=== PATIENT | female | born 1985 | race African-American/Black ===

== ENCOUNTER 2024-01-30 13:15 | Outpatient (AMB) | payer OTHER, MEDICAID, SELFPAY ==
--- NOTE | 2024-01-30 13:13 | MHC.PC.OV ---
Vital Signs 01/30/24 13:21 Height 5 ft 2 in Weight 162 lb BMI 29.6 BP 120/70 Blood Pressure Location Rt brachial Position Sitting Pulse 72 Pulse Source Pulse Oximeter Pulse Oximetry (%) 98 Oxygen Delivery Method Room Air Intake Visit Reasons: Est Care Low Thyroid Intake Note: pt is here for new patient, est care. 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 Required: No Accompanied by: Self / Same As Patient Allergies No Known Allergies Allergy (Verified 01/30/24 13:30) Medication List - Last Reconciled 01/30/24 by MALIK Lee chlorhexidine gluconate 0.12% PO loratadine 10 mg PO DAILY Tobacco use date assessed: 01/30/24 Dental Screening Dental Screen Date: 01/30/24 Did you have a dental visit in the last 12 months?: Yes Did you have a dental problem in the last 6 months where you did not have access to dental care?: No Was dental information given to patient?: Patient has dentist HPI HPI Comments History of Present Illness Details Patient is a 38-year-old female who I am meeting for the 1st time Patient has a past medical history significant for hypothyroidism for which she is not taking medication. Will draw labs. She has establish care with [facility]. Will sign release in send us records. Patient has history of gestational diabetes, will draw A1c. The patient denies polyuria polydipsia. Patient does have chief complaint of insomnia due to anxiety. Patient has establish care with therapist. Patient denies SI/HI. She believes she has increased anxiety due to social circumstances. COUNT [facility]CLUDES [facility] Medical History (Updated 02/01/24 @ 16:45 by Ludy Worthington MD) Hx of gestational diabetes mellitus, not currently History of hypothyroidism Hypothyroid Surgical History Hx of section Family History Mother High blood pressure Acid reflux Father No problems noted. 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 1. Little interest or pleasure in doing things: more than half the days 2. Feeling down, depressed, or hopeless: several days 3. Trouble falling or staying asleep, or sleeping too much: more than half the days 4. Feeling tired or having little energy: not at all 5. Poor appetite or overeating: nearly every day 6. Feeling bad about yourself - or that you are a failure or have let yourself or your family down: not at all 7. Trouble concentrating on things, such as reading the newspaper or watching television: not at all 8. Moving or speaking so slowly that other people could have noticed. Or the opposite - being so fidgety or restless that you have been moving around a lot more than usual: not at all 9. Thoughts that you would be better off or of hurting yourself in some way: not at all Total score: 8 Depression Screening Interpretation: Negative Depression Screening Done: Yes 79291 - PHQ-9 Billing: Yes Source: Developed by Drs. Roger Srinivasan, Tanesha Burton, Armen Rowell and colleagues, with an educational sarina from [employer] Thrive Questionnaire Date Thrive assessed: 01/30/24 I am a: Patient What is your living situation today?: I have a steady place to live Within the past 12 months, did the food you bought not last and you didn't have the money to get more?: Never true Within the past 12 months, did you worry whether your food would run out before you got money to buy more?: Never true Do you have trouble paying for medicines?: No Do you have trouble getting transportation to medical appointments?: No Do you have trouble paying your heating and electricity bill?: No Do you have trouble taking care of your child, family member or friend?: No Do you have trouble with day-to-day activities such as bathing, preparing meals, shopping, managing finances, etc.?: No Are you currently unemployed and looking for a job?: No Are you interested in more education?: No Please select the resources that you would like help with: None Currently or been in a relationship where the following occur: no concerns reported THRIVE Score: 0 AUDIT C Alcohol Use Questionnaire (AUDIT-C) 1. How often do you have a drink containing alcohol?: Monthly or less 2. How many drinks containing alcohol do you have on a typical day when you are drinking?: 1 or 2 3. How often do you have six or more drinks on one occasion?: Never Total Score: 1 Score Reviewed/Action Taken: Yes SATHYA-7 AMB Questionnaire SATHYA-7 Date SATHYA - 7 assessed: 01/30/24 Feeling nervous, anxious, or on edge: 1 = Several days Not being able to stop or control worryin = Not at all Worrying too much about different things: 1 = Several days Trouble relaxin = Not at all Being so restless that it is hard to sit still: 0 = Not at all Becoming easily annoyed or irritable: 1 = Several days Feeling afraid as if something awful might happen: 1 = Several days Total SATHYA-7 score (0-4 normal; 5-9 mild; 10-14 moderate; 15-21 severe): 4 Source: Developed by Drs. Roger Srinivasan, Tanesha Burton, Armen Rowell and colleagues, with an educational sarina from [employer] SATHYA-7 Assessment Billing SATHYA-7 Assessment Tool: SATHYA-7 Assessment 44428 Review of Systems Const All systems reviewed & are unremarkable except as noted in HPI and below Denies fatigue, Denies fever(s) and Denies headache(s) ENT Denies headache(s) Card Denies chest pain and Denies dyspnea Resp Denies dyspnea Neuro Denies headache(s) Psych Reports anxiety (With insomnia. Due to going through divorce. Patient has therapist), Denies homicidal ideation and Denies suicidal ideation Endo Denies fatigue Aller/Immun Reports seasonal rhinorrhea Physical exam (Primary Care) Vital Signs: Last Vital Signs Pulse 72 01/30/24 13:21 BP 120/70 01/30/24 13:21 Pulse Ox 98 01/30/24 13:21 Oxygen Delivery Method Room Air 01/30/24 13:21 Care Plan Goal for BP management: Blood pressure in control. BMI result Body Mass Index 29.6 Tobacco/Smoking Status: Tobacco use Status Tobacco use date assessed 01/30/24 01/30/24 13:15 Patient Tobacco Use Status Never used Tobacco 01/30/24 13:34 e-Cigarette/Vaping Use Never Used 01/30/24 13:34 PHQ-9: PHQ-9 Score PHQ-9: Total score 8 01/30/24 13:56 Depression Screening Interpretation: Negative Thrive Assessment: Date of Thrive Assessment Date Thrive assessed 01/30/24 01/30/24 13:28 Currently or been in a relationship where the following occur: no concerns reported Const Other: Appearance: Alert.? Oriented X3.? No acute distress.? Head: Normocephalic, atraumatic. Neck: Normal inspection.? Neck supple.?No thyroid nodule. CVS: Normal heart rate and rhythm.? Pulses normal.? Respiratory: No respiratory distress.? Breath sounds normal.? Neuro: Oriented X 3.? No motor deficit.? No sensory deficit. Assessment and Plan Assessment & Plan (1) Seasonal allergies: Code(s): J30.2 - Other seasonal allergic rhinitis Plan: Patient currently taking loratadine 10 mg (2) Insomnia due to anxiety and fear: Comment: Patient currently sees therapist. Will also prescribe hydroxyzine 25 mg p.o. p.r.n. to be taken at bedtime. Patient has been educated on side effects of this medication. Code(s): F51.05 - Insomnia due to other mental disorder; F40.9 - Phobic anxiety disorder, unspecified Plan: Take your medications as prescribed. If you were prescribed antibiotics today, it is important that you take your medication to their entirety, do not skip any doses, do not finish them early. Return to the emergency department with new or worsening symptoms. Such as fevers, chills, chest pain, shortness of breath, nausea, vomiting, dizziness, headache, vision changes, lethargy In case of emergency call 911 (3) History of hypothyroidism: Code(s): Z86.39 - Personal history of other endocrine, nutritional and metabolic disease Plan: TSH and reflex free T4 ordered (4) Hx of gestational diabetes mellitus, not currently : Code(s): Z86.32 - Personal history of gestational diabetes Plan: Hemoglobin A1c and comprehensive metabolic 40 Plan Follow up in 3 months. Orders: Orders Vitamin D 25-OH (D2 and D3) 01/30/24 Z13.21 - Encounter for screening for nutritional disorder UA CC w/rflx Micro + Cult 01/30/24 Z13.89 - Encounter for screening for other disorder Comprehensive Met. Panel 01/30/24 Z91.89 - Other specified personal risk factors, not elsewhere classified Vitamin B6 01/30/24 Z13.21 - Encounter for screening for nutritional disorder Vitamin B12 01/30/24 Z13.21 - Encounter for screening for nutritional disorder TSH reflex Free T4 01/30/24 Z13.29 - Encounter for screening for other suspected endocrine disorder Lipid Panel 01/30/24 Z13.220 - Encounter for screening for lipoid disorders Complete Blood Count Auto Diff 01/30/24 Z13.0 - Encounter for screening for diseases of the blood and blood-forming organs and certain disorders involving the immune mechanism Hemoglobin A1c 01/30/24 Z13.1 - Encounter for screening for diabetes mellitus Medications: New hydroxyzine HCl 25 mg PO BEDTIME PRN 30 tabs 0RF anxiety Coding Level of Care Code New Pt Level 4 (29951) Diagnoses Seasonal allergies J30.2 Insomnia due to anxiety and fear F51.05; F40.9 History of hypothyroidism Z86.39 Hx of gestational diabetes mellitus, not currently Z86.32 Additional Codes SATHYA-7 Assessment Billing - SATHYA-7 Assessment Tool: SATHYA-7 Assessment 16543 ([id number]) Time Spent (min) 27
[2024-01-30 13:21] VITALS: BP 120/70; PULSE 72; O2SAT 98; BMI 29.6
== END 2024-01-30 14:38 | disposition home or self-care (01) ==
PROVIDERS: Visit Provider Nurse Practitioner Primary Care
DX: J30.2 Other seasonal allergic rhinitis (principal); F51.05 Insomnia due to other mental disorder; F40.9 Phobic anxiety disorder, unspecified; Z86.39 Personal history of other endocrine, nutritional and metabolic disease; Z86.32 Personal history of gestational diabetes
CPT/HCPCS: 99204

== ENCOUNTER 2024-01-30 13:56 | Outpatient (REF) | payer OTHER, SELFPAY ==
[2024-01-30 16:13] LABS: MANUAL DIFF FLAG NO
[2024-01-30 16:16] LABS: Appearance Urine Clear; Color Urine Yellow; Glucose Urine UA Negative (Negative); Leukocyte Esterase Urine Negative (Negative); Nitrite Urine Negative (Negative); PH 7.5 (5.0-9.0); Specific Gravity - Urine 1.015 (1.005-1.025); Urine Blood Negative (Negative); Urine Ketones Negative (Negative); Urine Protein Negative (Neg-Trace)
[2024-01-30 16:20] LABS: Basophils Percent Auto 0.2 % (0-2); Eosinophils Absolute Auto 0.2 X10*3/uL (0.0-0.4); Eosinophils Percent Auto 3.8 % (0-4); Hematocrit 37.9 % (37.0-47.0); Hemoglobin 12.7 g/dl (12.0-16.0); Lymphocytes Absolute Auto 2.2 X10*3/uL (1.2-4.9); Lymphocytes Percent Auto 50.5 % (20-40); Mean Corpuscular HGB Conc 33.5 g/dl (31.0-35.0); Mean Corpuscular Hemoglobin 28.1 pg (27.0-33.0); Mean Corpuscular Volume 83.8 fL (80.0-98.0); Mean Platelet Volume 11.3 fL (9.4-12.3); Monocytes Absolute Auto 0.4 X10*3/uL (0.1-1.2); Monocytes Percent Auto 9.9 % (2-11); Neutrophils Absolute Auto 1.5 x10*3/uL (2.0-8.3); Neutrophils Percent Auto 35.6 % (45-73); Platelet Count 340 X10*3/uL (160-400); Red Blood Count 4.52 X10*6/uL (4.20-5.50); Red Cell Distribution Width 13.5 % (11.0-16.0); White Blood Count 4.3 X10*3/uL (4.8-10.8)
[2024-01-30 17:09] LABS: Estimated Average Glucose 108 mg/dL; Hemoglobin A1c % 5.4 % (<6.0)
[2024-01-30 18:59] LABS: Alanine Aminotransferase 10 U/L (0-31); Albumin Level 4.3 g/dL (3.5-5.0); Alkaline Phosphatase 51 U/L (39-117); Anion Gap 13 (12-20); Aspartate Amino Transferase 16 U/L (5-31); Bilirubin Total 0.7 mg/dL (0.0-1.0); Blood Urea Nitrogen 8 mg/dL (9-16); Calcium 9.5 mg/dL (8.4-10.2); Carbon Dioxide 25 mmol/L (22-29); Chloride 104 mmol/L (96-108); Cholesterol 111 mg/dL (<200); Estimated Glomerular Filt Rate > 60; Glucose Random 92 mg/dL (60-115); HDL Cholesterol 44 mg/dL (>40); LDL Cholesterol Calculated 57 mg/dL (<100); Potassium 4.3 mmol/L (3.3-5.1); Sodium 138 mmol/L (135-145); Total Protein 8.2 g/dL (6.5-8.0); Triglycerides 52 mg/dL (<150)
[2024-01-30 19:14] LABS: Vitamin B12 422 pg/mL (200-900)
[2024-01-30 19:17] LABS: TSH reflex Free T4 3.38 uIU/mL (0.32-4.0)
[2024-02-04 12:23] LABS: Vitamin D 25-OH, D2 <4 ng/mL; Vitamin D 25-OH, D3 10 ng/mL; Vitamin D 25-OH, Total 10 ng/mL (30-100)
== END 2024-01-30 13:57 | disposition home or self-care (01) ==
LOC: HO.HMGCLDS 13:56
PROVIDERS: PCP Internal Medicine; Visit Provider Nurse Practitioner Primary Care
DX: Z13.29 Encounter for screening for other suspected endocrine disorder (principal); Z13.0 Encounter for screening for diseases of the blood and blood-forming organs and certain disorders involving the immune mechanism; Z91.89 Other specified personal risk factors, not elsewhere classified; Z13.1 Encounter for screening for diabetes mellitus; Z13.220 Encounter for screening for lipoid disorders; Z13.89 Encounter for screening for other disorder; Z13.21 Encounter for screening for nutritional disorder
CPT/HCPCS: 36415; 80053; 80061; 81003; 82306; 82607; 83036; 84207; 84443; 85025

== ENCOUNTER 2024-07-21 13:21 | Outpatient (AMB) | payer OTHER, MEDICAID, SELFPAY ==
--- NOTE | 2024-07-21 13:34 | AM.OFFWIN_ITS ---
Intake Vital Signs 07/21/24 13:35 Height 5 ft 2 in Weight 175 lb BMI 32.0 BP 108/70 Blood Pressure Location Lt brachial Position Sitting Pulse 72 Pulse Source Pulse Oximeter Pulse Oximetry (%) 98 Oxygen Delivery Method Room Air Intake Visit Reasons: EP Sharp pain in rt breast Intake Note: Patient here for sharp pain of right breast which started yesterday, pt states it comes and goes. Patient Tobacco Use Status: Never used Tobacco Allergies No Known Allergies Allergy (Verified 07/21/24 13:36) Do you need a note to return to daycare/school/sports/work: Yes HPI EP Sharp pain in rt breast HPI Details This note is constructed using voice recognition software. While every effort has been made to ensure accuracy, rn occupational errors may have been included. The patient is a 38 year old female who presents to the clinic today with sharp right breast pain since yesterday intermittently. She reports that she has a Mirena IUD, and get irregular periods. She has no personal or family history of breast cancer. She denies nipple inversion or nipple discharge. She has not done a breast exam as she does not know how to perform 1. [facility] Medical History (Updated 02/01/24 @ 16:45 by Ludy Worthington MD) Hx of gestational diabetes mellitus, not currently History of hypothyroidism Hypothyroid Surgical History Hx of section Family History Mother High blood pressure Acid reflux Father No problems noted. 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 [employer] Current occupational exposures/hazards: No Cognitive needs: No Hearing needs: No Vision needs: No Review of Systems Const All systems reviewed & are unremarkable except as noted in HPI and below Physical Exam Vital Signs: Last Vital Signs Pulse 72 07/21/24 13:35 BP 108/70 07/21/24 13:35 Pulse Ox 98 07/21/24 13:35 Oxygen Delivery Method Room Air 07/21/24 13:35 BMI result Body Mass Index 32.0 Const General: cooperative, healthy appearing, comfortable, no acute distress and well developed Orientation/consciousness: patient oriented x3 Limitations: no limitations Chest Chest palpation & inspection: normal inspection of the chest and normal palpation of entire chest wall (Fibrous tissue palpated in each breast) Breast/axilla inspection: normal inspection of the breasts Breast/axilla palpation: no axillary lymphadenopathy Resp Effort & Inspection: normal respiratory effort and able to speak in complete sentences Skin General skin exam: no rashes or lesions noted Neuro General: patient oriented x3 Assessment & Plan Assessment & Plan (1) Mastodynia of right breast: Code(s): N64.4 - Mastodynia Plan: Reassuring physical examination. Educated patient on performance of self-breast examination. Reviewed benign variance of fibrous tissue. Imaging not indicated at this time. Advised patient to follow up with ongoing or worsening symptoms. Plan See above for full details and plan. Coding Level of Care Code Est Pt Level 3 (82745) Diagnoses Mastodynia of right breast N64.4
[2024-07-21 13:35] VITALS: BP 108/70; PULSE 72; O2SAT 98; BMI 32.0
== END 2024-07-21 14:40 | disposition home or self-care (01) ==
PROVIDERS: Visit Provider Registered Nurse
DX: N64.4 Mastodynia (principal)

== ENCOUNTER → 2024-07-21 13:21 | Outpatient (BNVA) | payer OTHER, MEDICAID, SELFPAY | PROVIDERS: Visit Provider Registered Nurse ==

== ENCOUNTER 2024-08-11 10:22 | Outpatient (AMB) | payer OTHER, MEDICAID, SELFPAY ==
--- NOTE | 2024-08-11 10:28 | MHC.PC.OV ---
Vital Signs 08/11/24 10:30 Height 5 ft 2 in Weight 178 lb BMI 32.6 BP 108/80 Blood Pressure Location Lt brachial Position Sitting Pulse 77 Pulse Source Pulse Oximeter Pulse Oximetry (%) 98 Oxygen Delivery Method Room Air Intake Visit Reasons: Transfer from [facility] thyroid/labs Intake Note: Pt is here today transfer from [facility] Allergies No Known Allergies Allergy (Verified 08/11/24 10:48) Medication List - Last Reconciled 08/11/24 by Ludy Worthington MD cholecalciferol (vitamin D3) 50 mcg PO DAILY hydroxyzine HCl 25 mg PO BEDTIME PRN loratadine 10 mg PO DAILY Tobacco use date assessed: 08/11/24 Dental Screening Dental Screen Date: 08/11/24 Did you have a dental visit in the last 12 months?: Yes Did you have a dental problem in the last 6 months where you did not have access to dental care?: No Was dental information given to patient?: Patient has dentist HPI Transfer from [facility] thyroid/labs HPI Details 38 year old lady with past medical history significant for hypothyroidism currently not on any medication, history of gestational diabetes, here to establish care with new PCP.. She has been feeling well, with no complaints at present time. Reviewed last fasting labs from 01/2024 , which showed normal thyroid, lipid levels and glucose levels . [facility] Medical History (Updated 08/11/24 @ 10:58 by Ludy Worthington MD) Vitamin D deficiency Hx of gestational diabetes mellitus, not currently Hypothyroid Surgical History Hx of section Family History Mother High blood pressure Acid reflux Father No problems noted. 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 [employer] Current occupational exposures/hazards: No Cognitive needs: No Hearing needs: No Vision needs: Yes Questionnaire Thrive Questionnaire Date Thrive assessed: 05/03/24 I am a: Patient What is your living situation today?: I have a place to live, but I am worried about losing it in the future Within the past 12 months, did the food you bought not last and you didn't have the money to get more?: Never true Within the past 12 months, did you worry whether your food would run out before you got money to buy more?: Never true Do you have trouble paying for medicines?: No Do you have trouble getting transportation to medical appointments?: No Do you have trouble paying your heating and electricity bill?: No Do you have trouble taking care of your child, family member or friend?: No Do you have trouble with day-to-day activities such as bathing, preparing meals, shopping, managing finances, etc.?: No Are you currently unemployed and looking for a job?: No Are you interested in more education?: No Please select the resources that you would like help with: None THRIVE Score: 1 SATHYA-7 AMB Questionnaire SATHYA-7 Date SATHYA - 7 assessed: 01/30/24 Source: Developed by Drs. Roger Srinivasan, Tanesha Burton, Armen Rowell and colleagues, with an educational sarina from [facility]. Review of Systems Const Denies fatigue, Denies fever(s) and Denies headache(s) Eyes Reports no additional complaints ENT Denies headache(s) Card Denies chest pain and Denies dyspnea Resp Denies dyspnea GI Reports no additional complaints Reports no additional complaints Musc Reports no additional complaints Skin/Breast Denies breast pain, Denies breast mass and Denies rash Neuro Denies headache(s) Psych Reports no additional complaints Endo Denies fatigue Prasanth/Lymph Reports no additional complaints Aller/Immun Reports seasonal rhinorrhea Physical exam (Primary Care) Vital Signs: Last Vital Signs Pulse 77 08/11/24 10:30 BP 108/80 08/11/24 10:30 Pulse Ox 98 08/11/24 10:30 Oxygen Delivery Method Room Air 08/11/24 10:30 BMI result Body Mass Index 32.6 Tobacco/Smoking Status: Tobacco use Status Tobacco use date assessed 08/11/24 08/11/24 10:31 Patient Tobacco Use Status Never used Tobacco 08/11/24 10:31 e-Cigarette/Vaping Use Never Used 08/11/24 10:31 PHQ-9: PHQ-9 Score PHQ-9: Total score 6 08/11/24 11:17 Thrive Assessment: Date of Thrive Assessment Date Thrive assessed 05/03/24 08/11/24 10:31 Const General: no acute distress and alert Orientation/consciousness: patient oriented x3 HENMT Ears: external ears normal, TM's normal bilaterally and EAC's normal General nose exam: Normal external nose present Mouth: Normal oral and palatal mucosa present, oropharynx normal and moist mucous membranes Eyes General: appearance normal, both eyes and all related structures Neck Neck: Yes full ROM, Yes no lymphadenopathy and Yes supple Resp Effort & Inspection: normal respiratory effort and able to speak in complete sentences Auscultation: clear to auscultation bilaterally Cardio Rate: regular rate Rhythm: regular rhythm Heart sounds: S1 normal heart sound present and S2 normal heart sound present GI Palpation (GI): Soft to palpation, nontender and no masses Auscultation: normal bowel sounds Skin General skin exam: no rashes or lesions noted Neuro General: patient oriented x3, gait normal, tone normal, moves all extremities, Normal light touch and pain sensation and no focal motor deficits Cranial nerves: Yes CN's II-XII intact bilaterally Cognition (Neuro): normal cognition Extrem General: Yes full ROM, Yes no joint enlargement, Yes no clubbing, cyanosis or edema and Yes no calf tenderness Psych Appearance: grossly normal and well kempt Mental Status: mental status grossly normal Speech and movement: Normal speech and movement present Affect: normal affect Attitude: cooperative Thought process: Normal thought process present Thought content: Normal thought content present and suicidality Office Procedures Flu Questionnaire Does the patient have a severe egg allergy?: No Does the patient have severe life threatening allergies?: No Does the patient have a fever or illness today?: No Has the patient ever had Guillain-Theresa Syndrome?: No Has the patient ever had any past reaction to a flu shot?: No Immunizations Fluarix Triv [id number] (PF) 45 mcg (15 mcg x 3)/0.5 mL IM syringe Performing Provider: Ludy Worthington MD Performing Location: [facility] Administered by: Darcy Leon CMA on 08/11/24 11:18 Dose Route Admin Location Dispensed Lot Number Expiration Date [employer] 0.5 mL IM Left Deltoid 0.5 mL [id number] 03/28/25 [id number] [employer] VIS Given Date VIS Provided VIS Publication Date 08/11/24 Single Vaccine 21 Eligibility Eligibility Date Funding Source Not VFC Eligible 08/11/24 Private Results Reviewed Results Reviewed: Name: Donna Gordon Age/Sex: 38/F : 1985 Unit#: [id number] Attend Dr: Blake Harkins TELETYPE INSTALLER Re01/30/24 Status: DEP [facility] SPEC : [id number] LEO: 01/30/24 STATUS: COMP REQ : [id number] RECD: 01/30/24-[address]: Blake Harkins TELETYPE INSTALLER COMP: 01/30/24 ENTERED: 01/30/[address]: Ludy Worthington MD ORDERED: CMP, Lipid Panel, TSH Rflx Test Result Flag Reference Sodium 138 135-145 mmol/L Potassium 4.3 3.3-5.1 mmol/L CL 104 96-108 mmol/L CO2 25 22-29 mmol/L Gap 13 12-20 BUN 8 L 9-16 mg/dL Creat 0.82 0.5-1.4 mg/dL EGFR > 60 NOTE: For -[place] individuals, multiply the result by 1.210. Chronic Kidney Disease: Estimated GFR < 60 mL/min/1.73m2 Severe Kidney Disease: Estimated GFR < 15 mL/min/1.73m2 Glucose, Random 92 60-115 mg/dL CA 9.5 8.4-10.2 mg/dL Total Bili 0.7 0.0-1.0 mg/dL AST (GOT) 16 5-31 U/L ALT (GPT) 10 0-31 U/L Protein, Total 8.2 H 6.5-8.0 g/dL Alb 4.3 3.5-5.0 g/dL Triglyceride 52 <150 mg/dL Desirable Triglyceride: less than 150 mg/dL Borderline High Triglyceride 150-199 mg/dL High Triglyceride: 200-499 mg/dL Very High Triglyceride: greater than or equal to 5OO mg/dL Cholesterol 111 <200 mg/dL Desirable Cholesterol: less than 200 mg/dL Borderline High Cholesterol: 200-239 mg/dL High Cholesterol: greater than 239 mg/dL LDL Calculated 57 <100 mg/dL Desirable LDL: less than 100 mg/dL Near Optimal/Above Optimal LDL: 110-129 mg/dL Borderline High LDL: 130-159 mg/dL High LDL: 160-189 mg/dL Very High LDL: greater than or equal to 190 mg/dL HDL 44 >40 mg/dL Desirable HDL: greater than 40 mg/dL Note: This HDL assay may give artificially low results in patients with liver disease. Alk Phos 51 39-117 U/L TSH 3.38 0.32-4.0 uIU/mL Laboratory Tests 01/30/24 14:18 25-OH Vitamin D Total 10 L Coding Level of Care Code Est Pt Level 4 (21743) Diagnoses Vitamin D deficiency E55.9 Insomnia due to anxiety and fear F51.05; F40.9 Hx of gestational diabetes mellitus, not currently Z86.32 Seasonal allergies J30.2 Assessment & Plan Assessment & Plan (1) Vitamin D deficiency: Code(s): E55.9 - Vitamin D deficiency, unspecified Category: Medical Plan: vitamin-D level to be checked, lab ordered continue taking vitamin-D 3 ease 50 mcg daily (2) Insomnia due to anxiety and fear: Comment: Patient currently sees therapist. Will also prescribe hydroxyzine 25 mg p.o. p.r.n. to be taken at bedtime. Patient has been educated on side effects of this medication. Code(s): F51.05 - Insomnia due to other mental disorder; F40.9 - Phobic anxiety disorder, unspecified Category: Medical Plan: Currently taking hydroxyzine as needed (3) Hx of gestational diabetes mellitus, not currently : Code(s): Z86.32 - Personal history of gestational diabetes Category: Medical Plan: gestational diabetes increases the risk for developing diabetes mellitus type 2, which can lead to heart attack and stroke later on. Lifestyle changes that promotes weight loss, healthy eating habits, and regular exercise are important, and can prevent the progression to diabetes (4) Seasonal allergies: Code(s): J30.2 - Other seasonal allergic rhinitis Category: Medical Plan: Takes loratadine as needed Orders: Orders Influenza [id number] Immunization 08/11/24 Z23 - Encounter for immunization Vitamin D 25-OH Total 08/11/24 E55.9 - Vitamin D deficiency, unspecified
[2024-08-11 10:30] VITALS: BP 108/80; PULSE 77; O2SAT 98; BMI 32.6
== END 2024-08-11 11:27 | disposition home or self-care (01) ==
PROVIDERS: Visit Provider Internal Medicine
DX: E55.9 Vitamin D deficiency, unspecified (principal); F51.05 Insomnia due to other mental disorder; F40.9 Phobic anxiety disorder, unspecified; Z86.32 Personal history of gestational diabetes; J30.2 Other seasonal allergic rhinitis

== ENCOUNTER 2024-08-11 10:22 | Outpatient (REF) | payer OTHER, MEDICAID, SELFPAY ==
[2024-08-11 14:16] LABS: Vitamin D 25-OH Total 40.1 ng/mL (>30)
== END 2024-08-11 10:23 | disposition home or self-care (01) ==
LOC: HO.HMGCLDS 10:22
PROVIDERS: Visit Provider Internal Medicine
DX: E55.9 Vitamin D deficiency, unspecified (principal); Z23 Encounter for immunization
CPT/HCPCS: 36415; 82306; 90471; 90656

== ENCOUNTER 2025-08-15 08:59 | Outpatient (REF) | payer BC, MEDICAID, SELFPAY ==
[2025-08-15 10:09] LABS: MANUAL DIFF FLAG NO
[2025-08-15 10:38] LABS: Hematocrit 36.3 % (37.0-47.0); Hemoglobin 12.3 g/dl (12.0-16.0); Imm Gran Abs Auto 0.01 X10*3/uL (0.00-0.03); Imm Gran Pct Auto 0.2 % (0.0-0.4); Lymphocytes Absolute Auto 2.3 X10*3/uL (1.2-4.9); Mean Corpuscular HGB Conc 33.9 g/dl (31.0-35.0); Mean Corpuscular Hemoglobin 27.5 pg (27.0-33.0); Mean Corpuscular Volume 81.2 fL (80.0-98.0); NRBC Abs Auto 0.000 X10*3/uL (0.0-0.012); NRBC Pct Auto 0.0 /100WBC (0.0-0.2); Platelet Count 339 X10*3/uL (160-400); Red Blood Count 4.47 X10*6/uL (4.20-5.50); White Blood Count 4.8 X10*3/uL (4.8-10.8)
[2025-08-15 10:52] LABS: Cholesterol 119 mg/dL (<200); HDL Cholesterol 44 mg/dL (>40); Triglycerides 71 mg/dL (<150)
== END 2025-08-15 09:00 | disposition home or self-care (01) ==
LOC: HO.HMGCLDS 08:59
PROVIDERS: PCP Internal Medicine; Visit Provider Internal Medicine
DX: Z13.6 Encounter for screening for cardiovascular disorders (principal); Z13.220 Encounter for screening for lipoid disorders; D72.829 Elevated white blood cell count, unspecified; Z13.1 Encounter for screening for diabetes mellitus; Z86.32 Personal history of gestational diabetes; E55.9 Vitamin D deficiency, unspecified
CPT/HCPCS: 36415; 80061; 82306; 82947; 85025

== ENCOUNTER 2025-08-31 16:03 | Outpatient (AMB) | payer BC, MEDICAID, SELFPAY ==
--- NOTE | 2025-08-31 16:09 | MHC.PC.OV ---
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: No Is last menstrual period known: Yes Last menstrual period: 08/24/25 Allergies No Known Allergies Allergy (Verified 08/31/25 16:24) Medication List - Last Reconciled 08/31/25 by Ludy Worthington MD levonorgestrel (Mirena) intrauterine loratadine 10 mg PO DAILY PRN Tobacco use date assessed: 08/31/25 Dental Screening Dental Screen Date: 08/31/25 Did you have a dental visit in the last 12 months?: Yes Did you have a dental problem in the last 6 months where you did not have access to dental care?: No Was dental information given to patient?: Patient has dentist HPI PE HPI Details 39-year-old lady with history of seasonal allergies, currently on loratadine, history of gestational diabetes here today for her physical exam. She had recent fasting labs done which showed fasting glucose, lipids within normal limits, no anemia, but vitamin-D is low at 25. She had her last cervical cancer screening done at [facility] OBGYN department only 4 years ago with benign findings per patient. Also had a Mirena IUD inserted in 2020 at [facility] . Flu vaccine given today, patient currently up-to-date with her Tdap COUNTS INCLUDE 234 BEDS AT [facility] Medical History Vitamin D deficiency Hx of gestational diabetes mellitus, not currently Hypothyroid Surgical History Hx of section Family History Mother High blood pressure Acid reflux Father No problems noted. 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 1. Little interest or pleasure in doing things: not at all 2. Feeling down, depressed, or hopeless: not at all 3. Trouble falling or staying asleep, or sleeping too much: not at all 4. Feeling tired or having little energy: not at all 5. Poor appetite or overeating: not at all 6. Feeling bad about yourself - or that you are a failure or have let yourself or your family down: not at all 7. Trouble concentrating on things, such as reading the newspaper or watching television: not at all 8. Moving or speaking so slowly that other people could have noticed. Or the opposite - being so fidgety or restless that you have been moving around a lot more than usual: not at all 9. Thoughts that you would be better off or of hurting yourself in some way: not at all Total score: 0 Depression Screening Interpretation: Negative Depression Screening Done: Yes 40745 - PHQ-9 Billing: Yes Source: Developed by Drs. Roger Srinivasan, Tanesha Burton, Armen Rowell and colleagues, with an educational sarina from [employer]. Thrive Questionnaire Date Thrive assessed: 08/14/25 I am a: Patient What is your living situation today?: I have a place to live, but I am worried about losing it in the future Within the past 12 months, did the food you bought not last and you didn't have the money to get more?: Never true Within the past 12 months, did you worry whether your food would run out before you got money to buy more?: Never true Do you have trouble paying for medicines?: No Do you have trouble getting transportation to medical appointments?: No Do you have trouble paying your heating and electricity bill?: No Do you have trouble taking care of your child, family member or friend?: No Do you have trouble with day-to-day activities such as bathing, preparing meals, shopping, managing finances, etc.?: No Are you currently unemployed and looking for a job?: No Are you interested in more education?: No Please select the resources that you would like help with: None THRIVE Score: 1 AUDIT C Alcohol Use Questionnaire (AUDIT-C) 1. How often do you have a drink containing alcohol?: Monthly or less 2. How many drinks containing alcohol do you have on a typical day when you are drinking?: 1 or 2 3. How often do you have six or more drinks on one occasion?: Never Total Score: 1 Score Reviewed/Action Taken: Yes SATHYA-7 AMB Questionnaire SATHYA-7 Date SATHYA - 7 assessed: 08/31/25 Feeling nervous, anxious, or on edge: 0 = Not at all Not being able to stop or control worryin = Not at all Worrying too much about different things: 0 = Not at all Trouble relaxin = Not at all Being so restless that it is hard to sit still: 0 = Not at all Becoming easily annoyed or irritable: 0 = Not at all Feeling afraid as if something awful might happen: 0 = Not at all Total SATHYA-7 score (0-4 normal; 5-9 mild; 10-14 moderate; 15-21 severe): 0 Source: Developed by Drs. Roger Srinivasan, Tanesha Burton, Armen Rowell and colleagues, with an educational sarina from [employer]. SATHYA-7 Assessment Billing SATHYA-7 Assessment Tool: SATHYA-7 Assessment 65687 Review of Systems Const Denies fever(s) Eyes Details: ? Glaucoma, sees [facility] Reports no additional complaints ENT Details: Dental hygiene every six-months with [facility] dental Reports no additional complaints Card Denies chest pain and Denies dyspnea Resp Denies cough and Denies dyspnea GI Reports no additional complaints Reports no additional complaints Musc Reports no additional complaints Skin/Breast Denies breast pain, Denies breast mass and Denies rash Neuro Reports no additional complaints Psych Reports no additional complaints Endo Reports no additional complaints Prasanth/Lymph Reports no additional complaints Aller/Immun Reports seasonal rhinorrhea Physical exam (Primary Care) Vital Signs: Last Vital Signs Temp 98.4 F 08/31/25 16:20 Pulse 80 08/31/25 16:20 Resp 16 08/31/25 16:20 BP 100/74 08/31/25 16:20 Pulse Ox 99 08/31/25 16:20 Oxygen Delivery Method Room Air 08/31/25 16:20 BMI result Body Mass Index 31.3 Tobacco/Smoking Status: Tobacco use Status Tobacco use date assessed 08/31/25 08/31/25 16:11 Patient Tobacco Use Status Never used Tobacco 08/31/25 16:11 e-Cigarette/Vaping Use Never Used 08/31/25 16:11 Depression Screening Interpretation: Negative Thrive Assessment: Date of Thrive Assessment Date Thrive assessed 08/14/25 08/31/25 16:11 Const General: no acute distress and alert Orientation/consciousness: patient oriented x3 HENMT Ears: external ears normal, TM's normal bilaterally and EAC's normal General nose exam: Normal external nose present Mouth: Normal oral and palatal mucosa present and moist mucous membranes Eyes General: appearance normal, both eyes and all related structures Neck Neck: Yes full ROM, Yes no lymphadenopathy and Yes supple Resp Effort & Inspection: normal respiratory effort and able to speak in complete sentences Auscultation: clear to auscultation bilaterally Cardio Rate: regular rate Rhythm: regular rhythm Heart sounds: S1 normal heart sound present and S2 normal heart sound present GI Palpation (GI): Soft to palpation, nontender and no masses Auscultation: normal bowel sounds Other: Goes to [facility] midwifery clinic General: Yes no CVA tenderness and Yes deferred Back/Spine/Pelvis Back: no CVA tenderness and No back tenderness Skin General skin exam: no rashes or lesions noted Neuro General: patient oriented x3, gait normal, tone normal, moves all extremities, Normal light touch and pain sensation and no focal motor deficits Cranial nerves: Yes CN's II-XII intact bilaterally Cognition (Neuro): normal cognition Extrem General: Yes full ROM, Yes no joint enlargement, Yes no clubbing, cyanosis or edema and Yes no calf tenderness Psych Appearance: grossly normal and well kempt Mental Status: mental status grossly normal Speech and movement: Normal speech and movement present Affect: normal affect Office Procedures Flu Questionnaire Does the patient have a severe egg allergy?: No Does the patient have severe life threatening allergies?: No Does the patient have a fever or illness today?: No Has the patient ever had Guillain-Blackstock Syndrome?: No Has the patient ever had any past reaction to a flu shot?: No Immunizations Fluarix [id number] (PF) 45 mcg (15 mcg x 3)/0.5 mL IM syringe Performing Provider: uLdy Worthington MD Performing Location: [facility] Administered by: Darcy Leon CMA on 08/31/25 16:29 Dose Route Admin Location Dispensed Lot Number Expiration Date NDC Applications Specialist 0.5 mL IM Left Deltoid 0.5 mL [id number] 03/28/26 [id number] [employer] Card VIS Given Date VIS Provided VIS Publication Date 08/31/25 Single Vaccine 24 Eligibility Eligibility Date Funding Source Not C Eligible 08/31/25 Private Results Reviewed Results Reviewed: Name: Donna Gordon Age/Sex: 39/F : 1985 Unit#: [id number] Attend Dr: Ludy Worthington MD Re08/15/25 Status: DEP REF Location: [facility] Disch: SPEC : [id number] LEO: 08/15/25 STATUS: COMP REQ : [id number] RECD: 08/15/[address]: Ludy Worthington MD COMP: 08/15/25 ENTERED: 08/15/[address] [facility] [address]: ORDERED: CBC Auto Diff Test Result Flag Reference WBC 4.8 4.8-10.8 X10*3/uL RBC 4.47 4.20-5.50 X10*6/uL HGB 12.3 12.0-16.0 g/dl HCT 36.3 L 37.0-47.0 % MCV 81.2 80.0-98.0 fL MCH 27.5 27.0-33.0 pg MCHC 33.9 31.0-35.0 g/dl RDW 13.3 11.0-16.0 % PLT 339 160-400 X10*3/uL MPV 11.6 9.4-12.3 fL Neut Pct Auto 37.3 L 45-73 % ImGran Pct Auto 0.2 0.0-0.4 % Lymp Pct Auto 47.7 H 20-40 % Limestone Pct Auto 10.4 2-11 % Eos Pct Auto 4.0 0-4 % Baso Pct Auto 0.4 0-2 % NRBC Pct Auto 0.0 0.0-0.2 /100WBC ANC Neut Abs # 1.8 L 2.0-8.3 x10*3/uL ImGran Abs Auto 0.01 0.00-0.03 X10*3/uL Lymph Abs Auto 2.3 1.2-4.9 X10*3/uL Limestone Abs Auto 0.5 0.1-1.2 X10*3/uL Eos Abs Auto 0.2 0.0-0.4 X10*3/uL Baso Abs Auto 0.0 0.0-0.2 X10*3/uL NRBC Abs Auto 0.000 0.0-0.012 X10*3/uL Name: Donna Gordon Age/Sex: 39/F : 1985 Unit#: [id number] Attend Dr: Ludy Worthington MD Re08/15/25 Status: DEP REF Location: [facility] Disch: SPEC : [id number] LEO: 08/15/25 STATUS: COMP REQ : [id number] RECD: 08/15/[address]: Ludy Worthington MD COMP: 08/15/25 ENTERED: 08/15/[address] [facility] [address]: ORDERED: Glu Fasting, Lipid Panel, Vitamin D 25-OH Test Result Flag Reference FBS 98 60-99 mg/dL Triglyceride 71 <150 mg/dL Desirable Triglyceride: less than 150 mg/dL Borderline High Triglyceride 150-199 mg/dL High Triglyceride: 200-499 mg/dL Very High Triglyceride: greater than or equal to 5OO mg/dL Cholesterol 119 <200 mg/dL Desirable Cholesterol: less than 200 mg/dL Borderline High Cholesterol: 200-239 mg/dL High Cholesterol: greater than 239 mg/dL LDL Calculated 61 <100 mg/dL Desirable LDL: less than 100 mg/dL Near Optimal/Above Optimal LDL: 110-129 mg/dL Borderline High LDL: 130-159 mg/dL High LDL: 160-189 mg/dL Very High LDL: greater than or equal to 190 mg/dL HDL 44 >40 mg/dL Desirable HDL: greater than 40 mg/dL Note: This HDL assay may give artificially low results in patients with liver disease. Vitamin D 25-OH 25.6 L >30 ng/mL Health Based Reference Values* < 20 ng/mL Deficient 20-30 ng/mL Insufficient > 30 ng/mL Sufficient Coding Level of Care Code Est Pt Prev Care 18-39y(65531) Diagnoses Annual visit for general adult medical examination with abnormal findings Z00.01 Vitamin D deficiency E55.9 Seasonal allergies J30.2 Additional Codes PHQ-9 - 15890 - PHQ-9 Billing: Yes ([id number]) SATHYA-7 Assessment Billing - SATHYA-7 Assessment Tool: SATHYA-7 Assessment 57266 ([id number]) Assessment & Plan Assessment & Plan (1) Annual visit for general adult medical examination with abnormal findings: Code(s): Z00.01 - Encounter for general adult medical examination with abnormal findings Plan: Fasting lab results reviewed with patient which all came back within normal limits except for low vitamin-D level. continue with regular dental visit every 6 months and regular eye exams, at least every 2 years. Take adequate calcium in diet and vitamin-D 3 at 2000 IU per cap once a day, in addition to weight-bearing exercises to help maintain good muscle tone and weight control. Instructed to do self-breast exam, and recommended to get yearly mammogram, starting at age 40. Flu vaccine given today. Up-to-date with her Tdap (2) Vitamin D deficiency: Code(s): E55.9 - Vitamin D deficiency, unspecified Category: Medical Plan: Start taking ifqd-iig-idwjuxr vitamin D3 2000 units daily (3) Seasonal allergies: Code(s): J30.2 - Other seasonal allergic rhinitis Category: Medical Plan: Prescription sent for loratadine 10 mg taken 1 tablet once a day as needed for nasal congestion Orders: Orders Influenza [id number] Immunization Today Z23 - Encounter for immunization Medications: Changed From loratadine 10 mg PO DAILY To loratadine 10 mg PO DAILY PRN 30 tabs 5RF allergy symptoms
[2025-08-31 16:20] VITALS: BP 100/74; PULSE 80; RESP 16; TEMP 36.9; O2SAT 99; BMI 31.3
--- OUTSIDE RECORDS SUMMARY | 2025-08-31 18:50 | XMS_ITS | Encounter Summary ---
Author Organization [facility] Address [address] [place] [address] Phone Care Team Providers Care Stonecutter Name Role Phone Ольга Bellamy CNM Unavailable Ольга Cuellar CNM Unavailable [phone] Teddy Boston MD Unavailable Charisse Hodge MD Unavailable [phone] Manju Britt RENAL SOCIAL WORKER Unavailable Theresa Lau MD Unavailable Ester Gu RENAL SOCIAL WORKER Unavailable Elizabeth Galindo CNM Unavailable Fabio Ziegler MD Unavailable Erika Melgar MD Unavailable [phone] Axel Huitron MD Unavailable [phone] Unavailable [email or web address] Charisse Hodge MD Primary Care Provider Charisse Hodge MD Primary Care Provider [phone] Charisse Hodge MD Unavailable [phone] Encounter Details Date Type Department Care Team (Late st Contact Info) Description 01/29/2018 Procedure Pass [facility] L&D Procedures [address] [place] [address] Social History Tobacco Use Types Packs/Day Years Used Date Smoking Tobacco: Never Smokeless Tobacco: Never Alcohol Use Standard Drinks/Week Comments No 0 (1 standard drink = 0.6 oz pur e alcohol) not with Comments Yes Sex and Gender Information Value Date Recorded Sex Assigned at Female 10/06/2017 9:38 AM EST Legal Sex Female 9:11 PM EDT Gender Identity Female 10/06/2017 9:38 AM EST Sexual Orientation Straight 10/06/2017 9: 38 AM EST 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 Not on file Not on file Not on f ile documented as of this encounter Plan of Treatment Not on file documented as of this encounter Visit Diagnoses Not on filedocumented in this encounter Care Teams Stonecutter Relationship Specialty Start Date End Date Charisse Hodge MD [address] [place] [address] PCP - General 08/28/17 07/05/20 Charisse Hodge MD [address] [place] [address] PCP - General Internal Medicine 07/06/20 Ольга Bellamy CNM [address] [place] [address] Historical LMR Provider 07/15/17 Ольга Cuellar CNM [address] [place] [address] Historical LMR Provider 07/15/17 10/06/21 Teddy Boston MD [address] [address] Historical LMR Provider 07/15/17 Charisse Hodge MD [address] [place] [address] Historical LMR Provider 07/15/17 Manju Britt NP [address] [place] [address] [email or web address] Historical LMR Provider 07/15/17 10/06/21 Theresa Lau MD [address] [address] Historical LMR Provider 07/15/17 Ester Gu NP [address] [place] [phone] Historical LMR Provider 07/15/17 2 Elizabeth Galindo CNM [address] [address] Historical LMR Provider 07/15/17 Fabio Ziegler MD [address] [place] [address] Historical LMR Provider 07/15/17 Erika Melgar MD [address] [facility] [address] [place] [address] Historical LMR Provider 07/15/17 10/06/21 Axel Huitron MD [address] [facility], [address] [place] [address] Historical LMR Provider 07/15/17 10/06/21 Darcy Wills, [facility] Historical LMR Provider 07/15/17 10/06/21 Charisse Hodge MD [address] [place] [address], [address] [place] [address] [email or web address] Insurance Assigned Provider 08/04/21 04/05/23 documented as of this encounter Additional Source Comments The information contained in this document represents components of the legal health record. It is not the complete legal health record.[facility]
--- OUTSIDE RECORDS SUMMARY | 2025-08-31 18:50 | XMS_ITS | Encounter Summary ---
Author Organization [facility] Address [address] [place] [address] Phone Care Team Providers Care Sand Shoveler Name Role Phone Ольга Bellamy CNM Unavailable Ольга Cuellar CNM Unavailable [phone] Teddy oBston MD Unavailable Charisse Hodge MD Unavailable [phone] Manju Britt PACKAGING SALES CONSULTANT Unavailable Theresa Lau MD Unavailable Ester Gu PACKAGING SALES CONSULTANT Unavailable Elizabeth Galindo CNM Unavailable Fabio Ziegler MD Unavailable Erika Melgar MD Unavailable [phone] Axel Huitron MD Unavailable Darcy Wills RDCS Unavailable [email or web address] Cahrisse Hodge MD Primary Care Provider Charisse Hodge MD Unavailable Encounter Details Date Type Department Care Team (Late st Contact Info) Description 05/08/2021 Procedure Pass [facility] L&D Procedures [address] [place] [address] Social History Tobacco Use Types Packs/Day Years Used Date Smoking Tobacco: Never Smokeless Tobacco: Never Alcohol Use Standard Drinks/Week Comments Not Currently 1 (1 standard drink = 0.6 oz pur e alcohol) None during Comments No Sex and Gender Information Value Date Recorded Sex Assigned at Female 10/06/2017 9:38 AM EST Legal Sex Female 9:11 PM EDT Gender Identity Female 10/06/2017 9:38 AM EST Sexual Orientation Straight 10/06/2017 9: 38 AM EST 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 Wish to be (Past 1 Month) No 021 10:00 AM EDT Trinh Palacios RN 2. Non-Specific Active Suici luisito Thoughts (Past 1 Month) No 05/11/2021 10:00 AM EDT Lizbet Palacios RN 6. Suicidal Behavior (Lifetime) No 10:00 AM EDT Trinh Palacios RN documented as of this encounter Plan of Treatment Not on file documented as of this encounter Visit Diagnoses Not on filedocumented in this encounter Additional Health Concerns Assessment Noted Time A Body Mass Index follow-up plan has been documented for the patient 04/10/2020 9:01 PM EDT PHQ-2 Depression Total Score: 0 04/10/20 20 1:23 PM EDT documented as of this encounter Care Teams Sand Shoveler Relationship Specialty Start Date End Date Charisse Hodge MD [address] [place] [address], [address] [place] [address] PCP - General Internal Medicine 07/06/20 Ольга Bellamy CNM [address] [place] [address], [address] [place] [address] Historical LMR Provider 07/15/17 Ольга Cuellar CNM [address] [place] [address] Historical LMR Provider 07/15/17 10/06/21 Teddy Boston MD [address] [place] [address] Historical LMR Provider 07/15/17 Charisse Hodge MD [address] [place] [address], [address] [place] [address] Historical LMR Provider 07/15/17 Manju Britt NP [address] [place] [address] [email or web address] Historical LMR Provider 07/15/17 10/06/21 Theresa Lau MD [address] [place] [address] Historical LMR Provider 07/15/17 Ester Gu NP [address] [place] [phone] Historical LMR Provider 07/15/17 2 Elizabeth Galindo CNM [address] [place] [address] Historical LMR Provider 07/15/17 Fabio Ziegler MD [address] [place] [address] Historical LMR Provider 07/15/17 Erika Melgar MD [address] [facility], [address] [place] [address] Historical LMR Provider 07/15/17 10/06/21 Axel Huitron MD 22 [facility], [address] [place] [address] Historical LMR Provider 07/15/17 10/06/21 Darcy Wills, [facility] Historical LMR Provider 07/15/17 10/06/21 Charisse Hodge MD [address] [place] [address], [address] [place] [address] Insurance Assigned Provider 08/04/21 04/05/23 documented as of this encounter Additional Source Comments The information contained in this document represents components of the legal health record. It is not the complete legal health record.[facility]
--- OUTSIDE RECORDS SUMMARY | 2025-08-31 18:50 | XMS_ITS | Clinical Summary ---
Author Organization [facility] Address [address] [place] [address] Phone Care Team Providers Care Railcar Foreman Name Role Phone Ольга Bellamy CNM Unavailable Teddy Boston MD Unavailable Charisse Hodge MD Unavailable [phone] Theresa Lau MD Unavailable [phone] Elizabeth Galindo CNM Unavailable [phone] Charisse Hodge MD Primary Care Provider [phone] Allergies No known active allergies Medications acetaminophen (TYLENOL) 325 mg tablet Take 2 tablets (650 mg total) by mouth every 6 (six) hours as needed for mild pain. 0 05/11/2021 Active loratadine (CLARITIN) 10 mg tablet Take 1 tablet (10 mg total) by mouth daily. 30 tablet 11 08/01/2023 Active Hospital, Clinic, or Other Facility Administered Medication Ordered Dose Route Frequency Start Date End Date Status copper (PARAGARD) intrauterine device 1 each 1 each Utrn Every 10 years 02/28/2023 Active Active Problems Problem Noted Date Diagnosed Date Eczema of both hands 08/04/2023 Assessment & Plan (08/04/2023 8:47 PM EST): No rash on exam today. Description consistent with possible eczema. Will monitor. Encounter for insertion of i ntrauterine contraceptive device 02/28/2023 Overview (02/28/2023): Paraguard IUD inserted 02/28/23 Lot # [id number] Lower abdominal pain 03/04/2022 Assessment & Plan (03/04/2022 4:46 PM EDT): Donna is here with severe low abdominal pain for the last 10 days. It is worse with movement but does still feel it with laying down. Denies N/V/D/C/dysuria, vaginal bleeding, abn discharge. No fever or chills. It is very painful to touch. Central pain worse on left side. Seen at urgent care and told she needs imaging. O: AAO x 3, walking slowly Abomen: Tender to touch below umbilicus, + rebound tenderness, worse on left side Incision well healed, tender to touch around incision Bimanual: Cervix posterior and difficult to reach, no CMG Tender uterus, difficut exam d/t patient pain A: Low abdominal pain with rebound tenderness P: Recommended to go to ED for eval today d/t severity of pain Send UA, C&S, GC/CT Follow up after ED visit History of 03/27/2021 Overview (05/07/2021): History of x3 Review of op note from third : no documentation of significant adhesions G4: anterior right lateral placenta Assessment & Plan (04/26/2021 6:26 PM EDT): Has pre-op 8/9 and 8/10. Discussed she should call if she goes into labor before then, in which case we would have her come to hospital for the surgery. Assessment & Plan (04/17/2021 12:38 PM EDT): Will stick with 39wk date. Assessment & Plan (04/05/2021 12:22 PM EDT): SW patient about scheduled section today. She is questioning whether she can reschedule to her KASIA (05/14). We discussed rationale for delivery in 39th week to decrease risk of labor before CS and complications of late term . Ultimately I advised pt she may request a change to her surgery if she prefers. She will consider and let us know. Papanicolaou smear of cervix with low grade squamous intraepithelial lesion (LGSIL) 05/13/2018 Overview (11/22/2022): 2017 Colpo: CIN1 Pap repeated 11/03/20 NILM HPV+ Colpo during - no biopsies. Recommend cotesting 10/2021: NILM / HPV neg - next due 2024 Assessment & Plan (11/15/2022 10:44 AM EST): Overdue for cotesting today, Pap smear sent Resolved Problems Problem Noted Date Diagnosed Date Resolved Date Normal , unspecified trimester 05/08/2021 07/09/2021 Gestational diabetes mellitu s (GDM) in third trimester 03/15/2021 07/09/2021 Overview (03/15/2021): Seen by [facility] GTT 191, [id number] Assessment & Plan (05/07/2021 5:40 PM EDT): POC on admission. Assessment & Plan (04/26/2021 6:26 PM EDT): Reports 2hr PP glucose readings have all been < 130 in the past week. Assessment & Plan (04/17/2021 12:38 PM EDT): BG has been well-managed. Had one elevation to 132 last week after eating ice cream. Continue routine care and management with JUDYE. Assessment & Plan (04/05/2021 12:14 PM EDT): Doing well with diet control, familiar with plan from previous pregnancies. Typical fasting 87, postprandial ranging from 110-147, mostly on the lower side. Continues to follow with MAMTA. Supervision of other high ri sk pregnancies, third trimester 11/03/2020 07/09/2021 Overview (04/19/2021): CNM OB-CMI 1 Rh Positive GC/Chlam neg PAP completed 11/03/20 Neg with pos HPV (neg 16 and 18) repeat pap with co- testing in 1 year. Tdap 02/19/21 Flu 11/03/20 Hgb 11.5 GTT 191 28 wk Repeat RPR neg GBS neg PPBC - paragard IUD (NOT interested in tubal) screening NT done 11/03/20, normal cfDNA, L2 (results pending), L2 [facility] NORMAL (for absent nasal bone). MFM consult (hypoplastic nasal bone, normal variant - nothing further advised Assessment & Plan (05/02/2021 3:27 PM EDT): Donna is doing well, just tired. Ready for next week. She plans on having her mother and with her- will be with her in the OR. She is still staying at her mom's house, very well supported there. Reviewed calling with labor signs. Assessment & Plan (04/26/2021 6:27 PM EDT): Donna is a 35yo at 37 3/7 weeks. Feeling very tired. Active baby. Has had BH. GBS negative, reviewed. ALEKS in one week. Assessment & Plan (04/17/2021 12:39 PM EDT): Donna is doing well. Experiencing back pain and seeing the chiropractor. Also noted external hemorrhoid, but is not having discomfort - reviewed OTC remedies. GBS today. +FM. Denies LOF, VB, UCs. Reviewed FM, PTL, PEC, and labor precautions. NV in one week. Assessment & Plan (04/05/2021 12:23 PM EDT): Feeling OK, really struggles in the heat during . Has an AC in her room. Seeing a chiropractor once weekly for low back pain, this has been helpful. Assessment & Plan (03/19/2021 4:53 PM EDT): Donna is doing well today. She is feeling regular movement. No questions or concerns today. EPDS 13. She is still staying with her mom- feels very well supported there. She and her are working on things and have been speaking with a medical lead. She feels safe and feels like they are making progress. We discussed delivery and scheduling of repeat . Message sent today for preop and surgery scheduling. Donna plans to have a paragard IUD inserted . She does not plan on having any more children but does not feel comfortable having a tubal. Assessment & Plan (02/19/2021 2:21 PM EDT): Feel well. Active baby. She is letting her 3 kids pick the name of this baby! Doing glucose test and CBC today. Reviewed preregistration packet. Reviewed third trimester warning signs, movement monitoring. TDAP today. Assessment & Plan (12/08/2020 12:57 PM EST): Pt reports feeling better. Has been having difficulty eating more than once a day d/t a feeling of fullness. Pt says this is improving. Thinks she might have heartburn bc the feeling is high and persistent in her abdomen. Staying with her mom right now which is very supportive. No other complaints. Denies lof,vb, cramping. Homeschooling her 3 children and very busy! We discussed small frequent meals, importance of fluids. We reviewed her labs including pap results and recommendation for repeat co-testing in 1 year. Encouraged stretching/walking to her daily routine. We discussed upcoming appointment for ultrasound and ALEKS. Assessment & Plan (11/03/2020 3:31 PM EST): Donna is experiencing a lot of nausea. Feels like Vitamin B6/doxylamine is not helping. Has trouble eating more than one meal a day. Is able to tolerate liquids well, drinking gatorade and jeanine tea throughout the day. Is also feeling fatigued and sometimes has difficulty getting out of bed but feels overall like both nausea and fatigue are improving. Has some concerns about initial ultrasound showing potential amniotic bands. Reviewed comfort measures for nausea including eating small amounts throughout the day and sucking on peppermint hard candies, as well as utilizing broths and protein shakes for nutrition. Reviewed when to call guidelines for potential dehydration. Discussed risks/benefits of anti-emetic medication; Donna opts for natural management at this time. Discussed amniotic bands with Donna; advised that they will be rechecked at followup ultrasound at 20 weeks and that fetus is moving well which is a good sign. Pap obtained at this visit. Pt to do initial labs following. F/U in 4 weeks. Julienne Green SNM Vulvar lesion 11/16/2018 11/21/2020 Assessment & Plan (11/16/2018 6:07 PM EST): HSV swab sent; this is probably due to the scratching she has been doing with the yeast infection; they had questions re the possibility of HSV, so I reviewed natural hx and aquisiton, outbreaks, etc; assured this is not sign of cheating, and that I would not be concerned unless test comes back positive Group beta Strep positive 01/23/2018 Hemorrhoids during in third trimester 01/07/2018 03/06/2018 History of delivery 08/14/2017 03/06/2018 Overview (01/21/2018): Planning RLTCS. MD consult scheduled for 01/07/18 x 2 for failure to progress (8lbs and 7 lbs). Got to 8cm and then had arrest of progress Pt may be interested in TOLAC. CRICO states TOLAC contraindicated if > 2 c- sections with no intervening vaginal deliveries Disc w pt poor possibility of success considering previous deliveries Plan: will get sono at 37 wks for EFW. If > 7 lbs will have repeat . If < 7lbs will try TOLAC but understands will be managed conservatively Needs consent signed 11/26: Pt leaning towards repeat c/section pls have pt sign consent at next visit: Assessment & Plan (01/07/2018 9:35 PM EDT): Reviewed clinical scenario for two prior deliveries - same indication for both c-sections (FTP). Discussed outcomes best with vaginal delivery however, increased risk in unsuccessful TOLAC. Would recommend RLTCS for delivery in this . Also reviewed risks of 3 c-sections with respect to future pregnancies (Donna would like to have 4 children) - discussed 40% increase in risk for abnormal placentation (i.e. Accreta/increta/percreta) and need for early delivery/concurrent hysterectomy/increased morbidity and mortality. Even with this taken into consideration, would still recommend RLTCS given the events of prior deliveries. Donna is amenable to this plan. She requested delivery during the month of December as her father in January and she desires that her baby not be born in that month. I reviewed the recommendation for to be scheduled on/after 39 wks EGA therefore the earliest date for delivery is 01/30/18. Case request submitted, she will consider what day works best for her within those guidelines. Assessment & Plan (08/14/2017 10:24 AM EST): x 2. Pt may be interested in TOLAC. Will discuss with group. 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 This was present in previous as well. Per blood bank, all clinically significant antibodies have been ruled out. Recommend repeat at 28 weeks and type & cross on admission. Assessment & Plan (08/14/2017 10:23 AM EST): Positive antibody screen, antibody of indeterminate significance. This was present in previous as well. Per blood bank, all clinically significant antibodies have been ruled out. Recommend repeat at 28 weeks and type & cross on admission. Sickle cell trait 08/14/2017 04/05/2021 Overview (12/10/2017): Pt reports FOB was tested 7 years ago in first , negative. delivery delivered 08/13/2017 05/13/2018 Overview (01/14/2018): HR criteria: h/o CS x 2 CNM Rh positive Flu 08/13/17 Tdap 12/10/17 Hgb 12.4 GTT 125 GBS * PPBC Paragard Immunizations Immunization Administration Dates Next Due DT 11/18/2002 Hepatitis A, Adult 07/19/2019,10/30/2012, 008 Hepatitis B Adult 11/18/2012 Influenza Quadrivalent Prese rvative Free IM 08/01/2023,08/29/2022,11/03/2020,07/19,08/13/2017,08/03/2014 Influenza Quadrivalent w/ Pr eservative IM 09/03/2021 Meningococcal MCV4P 07/19/2019,03/29/2008 Meningococcal MPSV4 11/18/2002 PPD Test 04/10/2020 Polio, Unspecified Formulation 11/18/2002 Tdap 02/19/2021,12/10/2017,11/25/2014 Typhoid, ViCPs 08/29/2022,07/19/2019 Typhoid, unspecified formulation 03/29/2008 Yellow Fever 07/19/2019 Yellow Fever Alternate Formulation 07/19/2019 Family History Medical History Relation Comments Hypertension Mother Relation Status Comments Brother 1 Alive Brother 2 Alive Daughter Alive Father Mother Alive Sister Alive Son Alive Social History Tobacco Use Types Packs/Day Years Used Date Smoking Tobacco: Never Smokeless Tobacco: Never Alcohol Use Standard Drinks/Week Comments Not Currently 1 (1 standard drink = 0.6 oz pur e alcohol) None during Child or Family Care Answer Date Record ed Do you have problems with on e of the following making it difficult for you to work, study, or receive health care? No 08/01/2023 Education Answer Date Recorded Are you interested in more education? Not on tiana e 08/07/2025 Are you concerned about learning? Not on file 08/07/2025 No 08/07/2025 No 08/07/2025 Food Answer Date Recorded Within the past 6 months we worried whether our food would run out before we got money to buy more. Never True 08/01/2023 Within the past 6 months the food we bought just didn't last and we didn't have enough money to get more. Never True Residential Stability Answer Date Recor ded What is your housing situation today? I have michael sing 08/01/2023 How many times have you move d in the past 12 months? Zero (I did not move) 08/01/2023 Paying for Meds Answer Date Recorded Do you have trouble paying for medicines? No 08/01/2023 Paying Utility Bills Answer Date Record ed Do you have trouble paying your heating or elect ricity bill? Yes 08/01/2023 Transportation Answer Date Recorded Has the lack of transportati on kept you from medical appointments or from getting medications? No 08/01/2023 Unemployment Answer Date Recorded Are you currently unemployed or working on a part-time or temporary basis, and looking for work? No 08/01/2023 Digital Access Answer Date Recorded No 08/07/2025 No 08/07/2025 Reliable internet access at home? Not on file 08/07/2025 Device with a working camera? Not on file Intimate Partner Violence Answer Date R ecorded Denied Basic Needs Not on file 08/01/2023 In the past 12 months have y ou been in a relationship with a person who hurts, threatens, or tries to control you? Patient unable to respond 08/01/2023 Worried food would run out Not on file 08/01 In the past 12 months have y ou been in a relationship with a person who hurts, threatens, or tries to control you? 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 Not on file Not on file Not on file Last Filed Vital Signs Vital Sign Reading Time Taken Comments Blood Pressure 116/68 08/01/2023 1:18 PM EDT Pulse 71 08/01/2023 1:18 PM EDT Temperature 35.8 C (96.5 F) 08/01/2023 1:18 PM EDT Respiratory Rate 18 03/04/2022 10:38 PM EDT Oxygen Saturation 99% 08/01/2023 1:18 PM EDT Inhaled Oxygen Concentration - - Weight 79.2 kg (174 lb 9.6 oz) 08/01/2023 1:18 P M EDT Height 157.5 cm (5' 2 ) 08/01/2023 1:18 PM EDT Body Mass Index 31.93 08/01/2023 1:18 PM EDT Plan of Treatment Health Maintenance Due Date Last Done Comments DEPRESSION SCREENING 08/01/2024 08/01/2023, 09/03/20 INFLUENZA VACCINE (#1) 2025 3, 08/29/2022, 09/03/2021, Additional history exists COVID-19 VACCINE ( season) 2025 12/14/2022, 08/24/2022 PAP SMEAR 11/15/2025 11/15/2022, 02/01/2021, 04/06/2018, Additional history exists SCREENING FOR DIABETES 08/11/2026 , 08/11/2023, 02/19/2021 Adult Td,Tdap Booster 02/19/2031 02/19/2021 , 12/10/2017, 11/25/2014 IUD 02/28/2033 02/28/2023 HEPATITIS A VACCINES Completed 07/19/2019, 10/30/2012, 03/29/2008 MENINGOCOCCAL VACCINES (ACWY) Aged Out 07/19/2019, 03/29/2008, 11/18/2002 No longer eligible based on patient's age to complete this topic HEPATITIS C SCREENING Completed 11/03/2020 , 11/03/2020, 11/03/2020, Additional history exists HIV ONE-TIME SCREENING (18-65 YEARS) Completed 11/03/2020 SMOKING STATUS SCREENING (Once After 26 Yrs) Completed 08/01/2023 HIB VACCINES Aged Out No longer eligi ble based on patient's age to complete this topic MENINGOCOCCAL VACCINES (B) Aged Out N o longer eligible based on patient's age to complete this topic PNEUMOCOCCAL VACCINES (0-49 years) Aged Out No longer eligible based on patient's age to complete this topic Medical Devices Implanted Type Area Trap Operator Device Identifier Shelf Expiration Date Model / Serial / Lot Iud Implanted:10/2022 (Quantity not on file) Intrauterine Device Procedures Procedure Name Priority Date/Time Associated Diagnosis Comments PAP TEST Routine 11/15/2022 12:00 AM EST GLUCOSE Routine 02/19/2021 1:43 PM EDT Encounter for supervision of other normal in second trimester HEPATITIS C ANTIBODY, QUALITATIVE Routine 11/03/2020 3:44 PM EST Encounter for supervision of other normal in first trimester from Last 3 Months or Most Recently Relevant to Health Maintenance Results * Pap Test (11/15/2022 12:00 AM EST) 11/15/2022 11/18/2022 10: 02 AM EST Narrative SEE NARRATIVE - 11/22/2022 12:43 PM EST [address] [address] Dot Compliance Coordinator: Anna Skelton MD PERISHABLE FREIGHT INSPECTOR Cytology Report FINAL DIAGNOSIS A. PAP SMEAR (SUREPATH) CE: SPECIMEN ADEQUACY: Satisfactory for evaluation; transformation zone absent/insufficient. INTERPRETATION: NEGATIVE FOR INTRAEPITHELIAL LESION OR MALIGNANCY. Reactive changes. Fungal organisms morphologically consistent with Jami species. Electronically Signed Out By: MD Yeni Palmer CT(ASCP) By his/her signature above, the pathologist listed as making the Final Diagnosis certifies that he/she has personally reviewed this case and confirmed or corrected the diagnosis. The Pap test is a screening test primarily for squamous cancers and precursors and has associated false-negative and false-positive results. New technologies such as liquid-based preparations may decrease but will not eliminate all false-negative results. Regular sampling and follow-up of unexplained clinical signs and symptoms are recommended to minimize false negative results. PROCEDURES/ADDENDA HPV Testing (Requested) Ordered Date: 11/18/2022 A. PAP SMEAR (SUREPATH) CE: Human Papilloma Virus Test NEGATIVE for high-risk Human Papilloma Virus types 16, 18, 45 and the Other high risk probe set (Includes 31, 33, 35, 39, 51, 52, 56, 58, 59, 66, 68) Note: Testing performed by Scale[facility] Onclarity HR-HPV analysis. Clinical correlation is advised. This HPV test was performed at [facility], [address] [place] [address]. This test has been FDA approved for SurePath cervical cytology specimens. The accuracy and precision of this test for all other specimen sources has been verified in the Cytopathology Laboratory of the [facility] and has not been cleared or approved by the U.S. Food and Drug Administration. Clinical correlation is advised. CLINICAL HISTORY Date of Last Menstrual Period: 10-04-2022 Infection History: HPV: OTHER HIGH RISK, 2020 Other Clinical Conditions: Screening Pap SPECIMEN SOURCE A: PAP SMEAR (SUREPATH) CE Patient Name: DONNA GORDON : 1985 (Age: 36) Sex: F Institution: [facility] Location: [facility] Date of Collection: 11/15/2022 Date of Reported: 11/22/2022 12:43 Results to: Ольга Bellamy MSN us Ольга Bellamy CNM CYTOLOGY ORDERABLES Final Result Performing Organization Address City/[facility] Co de Phone Number SEE NARRATIVE * (ABNORMAL) Glucose (02/19/2021 1:43 PM EDT) GLUCOSE 183(H) 70 - 99 mg/dL [facility] Blood 02/19/2021 1:43 PM EDT 02/19/2021 2:55 PM EDT us Ese Mcneill MD LAB BLOOD BKR ORDERABLES F inal Result Performing Organization Address [facility] Co de Phone Number [address] [address] * Hepatitis C antibody, qualitative (11/03/2020 3:44 PM EST) HCV NON-REACTIV E NON-REACTI VE [facility] Blood 11/03/2020 3:44 PM EST 11/03/2020 3:58 PM EST Julienne Calle CNM LAB BLOOD BKR ORDERABL ES Final Result Performing Organization Address [facility] Co de Phone Number [address] [address] from Last 3 Months or Most Recently Relevant to Health Maintenance Insurance [facility] Address: [address] [address] [facility] Address[facility] [address] [address] [facility] Address: [address] [address] [facility] [facility] Address[facility] [address] [address] [facility] Address: [address] [address] [facility] Address: [address] [address] [facility] Address: [id number] [place] [address] [facility] Address: [id number] [place] [address] [place] [address] [facility] Address: [address] [address] [facility] Advance Directives For more information, please contact: [phone] (9AM - 5PM [facility], Friday-Friday) Documents on File Type Date Recorded Patient Natural Science Manager Expl anation Healthcare Proxy 05/14/2021 5:38 PM * Full Code (Latest Code Status on File) Date Activated Date Inactivated Comments 05/08/2021 8:43 AM Question Answer Comments Code Status Confirmed With: Patient * Full Code Date Activated Date Inactivated Comments 05/08/2021 5:46 AM 05/08/2021 8:41 AM Question Answer Comments Code Status Confirmed With: Patient * Full Code (Presumed) Date Activated Date Inactivated Comments 01/29/2018 11:41 PM 02/02/2018 9:50 PM * Full Code (Presumed) Date Activated Date Inactivated Comments 01/29/2018 9:14 PM 01/29/2018 11:41 PM Care Teams Railcar Foreman Relationship Specialty Start Date End Date Charisse Hodge MD [address] [place] [address], [address] [place] [address] PCP - General Internal Medicine 07/06/20 Ольга Bellamy CNM [address] [place] [address] Historical LMR Provider 07/15/17 Teddy Boston MD [address] [place] [address] Historical LMR Provider 07/15/17 Charisse Hodge MD [address] [place] [address], [address] [place] [address] Historical LMR Provider 07/15/17 Theresa Lau MD [address] [place] [address] Historical LMR Provider 07/15/17 Elizabeth Galindo CNM [address] [place] [address] Historical LMR Provider 07/15/17 Additional Source Comments The information contained in this document represents components of the legal health record. It is not the complete legal health record.[facility]
--- OUTSIDE RECORDS SUMMARY | 2025-08-31 18:50 | XMS_ITS | Encounter Summary ---
Author Organization [facility] Address [address] [place] [address] Phone Care Team Providers Care Maintenance Analyst Name Role Phone Mia Ольга CNCris Unavailable Teddy Boston MD Unavailable Charisse Hodge MD Unavailable [phone] Theresa Lau MD Unavailable [phone] Elizabeth Galindo CNM Unavailable [phone] Charisse Hodge MD Primary Care Provider Charisse Hodge MD Unavailable [phone] Encounter Details Date Type Department Care Team (Late st Contact Info) Description 03/04/2022 Procedure Pass [facility], Ct Scan - [address] [address] Social History Tobacco Use Types Packs/Day Years [...] to work, study, or receive health care? Yes 09/03/2021 Education Answer Date Recorded Are you interested in help w ith more adult education (for example, completing high school, GED, job training, learning the [place] language, technical skills, or developing parenting skills)? No 09/03/2021 Food Answer Date Recorded Within the past 6 months we worried whether our food would run out before we got money to buy more. Never True 09/03/2021 Within the past 6 months the food we bought just didn't last and we didn't have enough money to get more. Never True Residential Stability Answer Date Recor ded What is your housing situation today? I have michael sing 09/03/2021 How many times have you move d in the past 12 months? Zero (I did not move) 09/03/2021 Paying for Meds Answer Date Recorded Do you have trouble paying for medicines? No 09/03/2021 Paying Utility Bills Answer Date Record ed Do you have trouble paying your heating or elect ricity bill? No 09/03/2021 Transportation Answer Date Recorded Has the lack of transportati on kept you from medical appointments or from getting medications? No 09/03/2021 Unemployment Answer Date Recorded Are you currently unemployed or working on a part-time or temporary basis, and looking for work? Yes 09/03/2021 Comments No Sex and Gender Information Value [...] Date of Assessment Author No Risk Indicated 03/04/2022 5:24 PM EDT Dylan Kent RN * [place] Suicide Severity Rating Scale (Screener/Recent Self-Report) Question Answer Date of Assessment Author 1. Wish to be (Past 1 Month) No 022 5:24 PM EDT Damian Kent RN 2. Non-Specific Active Suici luisito Thoughts (Past 1 Month) No 03/04/2022 5:24 PM EDT Damian Kent, RN 6. Suicidal Behavior (Lifetime) No 5:24 PM EDT Damian Kent, RN documented as of this encounter Plan of Treatment Not on file documented as of this encounter Visit Diagnoses Not on filedocumented in this encounter Additional Health Concerns Assessment Noted Time PHQ-9 Depression Total Score: 7 09/03/20 21 11:45 AM EST A Body Mass Index follow-up plan has been documented for the patient 04/10/2020 9:01 PM EDT PHQ-2 Depression Total Score: 3 09/03/20 21 11:45 AM EST documented as of this encounter Care Teams Maintenance Analyst Relationship Specialty Start Date End Date Charisse Hodge MD [address] [place] [id number] PCP - General Internal Medicine 07/06/20 Ольга Bellamy CNM [address] [place] [address] Historical LMR Provider 07/15/17 Teddy Boston MD [address] [place] [address] Historical LMR Provider 07/15/17 Charisse Hodge MD [address] [place] [address] Historical LMR Provider 07/15/17 Theresa Lau MD [address] [place] [address] Historical LMR Provider 07/15/17 Elizabeth Galindo CNM [address] [place] [address] [email or web address] Historical LMR Provider 07/15/17 Charisse Hodge MD [address] [place] [address], [address] [place] [address] [email or web address] Insurance Assigned Provider 08/04/21 04/05/23 documented as of this encounter Additional Source Comments The information contained in this document represents components of the legal health record. It is not the complete legal health record.[facility]
--- OUTSIDE RECORDS SUMMARY | 2025-08-31 18:50 | XMS_ITS | Clinical Summary ---
Author Organization [facility] Address [address] [place] [address] Care Team Providers Care Food Stand Manager Name Role Phone Charisse Hodge Primary Care Provider Allergies No known active allergies Medications mefloquine (LARIAM) 250 mg tablet 1 tablet orally once weekly for 2 weeks before travel, weekly during travel and for 4 weeks after returning home 9 tablet 2 Active Active Problems No known active problems Immunizations Immunization Administration Dates Next Due Hepatitis A Vaccine, Adult Dosage 07/19/2019 Influenza, Injectable, Quadrivalent, Preservativ e Free 08/29/2022,07/19/2019 Meningococcal Polysaccharide (Groups A, C, Y and W-135) Diphtheria Toxoid Conjugate Vaccine (MCV4P) 07/19/2019 Typhoid Vi Capsular Polysaccharide Vaccine 08/29,07/19/2019 Yellow Fever Vaccine Alternative Formulation Social History Tobacco Use Types Packs/Day Years Used Date Smoking Tobacco: Never Assessed Comments Unknown Sex and Gender Information Value Date Recorded Sex Assigned at Female 08/28/2022 3:41 PM EST Legal Sex Female 12:26 PM EDT Gender Identity Female 08/28/2022 3:41 PM EST Sexual Orientation Straight 08/28/2022 3: 41 PM EST Last Filed Vital Signs Vital Sign Reading Time Taken Comments Blood Pressure - - Pulse - - Temperature 36.4 C (97.5 F) 08/29/2022 2:55 PM EST Respiratory Rate - - Oxygen Saturation - - Inhaled Oxygen Concentration - - Weight 82.5 kg (181 lb 14.1 oz) 08/29/2022 2:55 PM EST Height 156.2 cm (5' 1.5 ) 07/19/2019 4:10 PM EDT Body Mass Index 33.81 07/19/2019 4:10 PM EDT Plan of Treatment Health Maintenance Due Date Last Done Comments Cervical Cancer Screening 1986 HIV Screening 1986 HPV and Pap Smear 1986 Pap Smear 1986 Varicella Vaccines (1 of 2 - 13+ 2-dose series) 12/26/1999 Hepatitis B Vaccines (2 of 3 - 19+ 3-dose series) 12/16/2012 11/18/2012 Alcohol/Substance Use Screening 09/29/2024 Influenza Vaccine (#1) 2025 , 09/03/2021, 11/03/2020, Additional history exists COVID-19 Vaccine (2 - 2024- season) 2025 08/24/2022 DTaP,Tdap,and Td Vaccines (5 - Td or Tdap) 02/19/2031 02/19/2021, 12/10/2017, 11/25/2014, Additional history exists Pneumococcal Vaccine: Pediatric (0-5 Years) and At-Risk Patients (6-50 Years) Aged Out No longer eligible based on patient's age to complete this topic Insurance [facility] Care Teams Food Stand Manager Relationship Specialty Start Date End Date Charisse Hodge [address] [place] [id number] PCP - General Internal Medicine 06/30/19
== END 2025-08-31 16:49 | disposition home or self-care (01) ==
LOC: HO.HMCC 16:04
PROVIDERS: PCP Internal Medicine; Visit Provider Internal Medicine
DX: Z00.01 Encounter for general adult medical examination with abnormal findings (principal); E55.9 Vitamin D deficiency, unspecified; J30.2 Other seasonal allergic rhinitis; Z23 Encounter for immunization

== ENCOUNTER → 2025-08-31 16:03 | Outpatient (BNVA) | payer BC, MEDICAID, SELFPAY | PROVIDERS: PCP Internal Medicine; Visit Provider Internal Medicine | DX: Z00.01 Encounter for general adult medical examination with abnormal findings (principal); Z23 Encounter for immunization; E55.9 Vitamin D deficiency, unspecified; J30.2 Other seasonal allergic rhinitis | CPT/HCPCS: 90471; 90656; 96127 ==